=== PATIENT | female | born 1980 | race Two or more races ===

== ENCOUNTER 2018-12-02 11:55 | Outpatient (CLI) | payer OTHER | END 2018-12-02 12:46 | disposition home or self-care (01) | LOC: RAD 11:55 | DX: M54.5 Low back pain (principal) ==

== ENCOUNTER 2019-01-11 09:14 | Outpatient (CLI) | payer OTHER | END 2019-01-11 10:57 | disposition home or self-care (01) | LOC: LAB 09:14 | DX: E03.8 Other specified hypothyroidism (principal); E55.9 Vitamin D deficiency, unspecified; D64.89 Other specified anemias; N30.00 Acute cystitis without hematuria; Z11.3 Encounter for screening for infections with a predominantly sexual mode of transmission ==